=== PATIENT | male | born 1950 | race American Indian/Alaskan Native ===

== ENCOUNTER 2017-01-24 11:37 | Day surgery (SDC) | payer MEDICARE ==
[~2017-01-24 11:37] MED LIST: IOPIDINE OD ONE; IOPIDINE ONE; MYDRIACYL OD ONE; MYDRIACYL ONE; NEOFRIN OD ONE; NEOFRIN ONE
[2017-01-24 12:12] VITALS: BP 128/80
[2017-01-24] MEDS ORDERED: NEOFRIN OD ONE (12:27)
[2017-01-24] MEDS ORDERED: IOPIDINE OD ONE (12:27)
[2017-01-24] MEDS ORDERED: MYDRIACYL OD ONE (12:27)
== END 2017-01-24 11:38 | disposition home or self-care (01) ==
LOC: OR 11:37
PROVIDERS: ATTEND Specialist
DX: H26.491 Other secondary cataract, right eye (principal)